=== PATIENT | female | born 1965 | race Caucasian/White ===

== ENCOUNTER → 2017-04-14 | Outpatient (CLI) | payer BC ==
[~2017-04-14] MED LIST: CLON0.5T3 PO; ESCI1TAB6 PO; TEMA15CA4 PO
--- NOTE | 2017-04-14 10:04 | DIAGNOSTIC IMAGING REPORT ---
ABDOMEN COMPLETE (US) HISTORY: Pain. Nodule. GENERALIZED ABDOMINAL PAIN, SWELLING, MASS/LUMP. COMPARISON: 08/21/2011 FINDINGS: Pancreas: The pancreas demonstrates a normal echotexture. Liver: Unremarkable. Gallbladder: Combination of gallstones as well as a small amount of sludge. No significant wall edema. CBD: 4 mm Kidneys: No hydronephrosis. Spleen: Normal in size. Aorta: Normal in caliber. IVC: Patent. IMPRESSION: 1. Combination of gallstones as well as a small amount of sludge within the gallbladder. 2. Normal caliber bile ducts. 3. Otherwise negative study. The above report was generated using voice recognition software. It may contain grammatical, syntax or spelling errors. Electronically signed by: Jason Caro M.D. 04/14/2017 10:03 AM Dictated Date/Time: 04/14/2017 10:01 AM
--- NOTE | 2017-04-14 10:10 | DIAGNOSTIC IMAGING REPORT ---
Neck ULTRASOUND HISTORY: GENERALIZED ABDOMINAL PAIN, SWELLING, neck MASS/LUMP COMPARISON: None. FINDINGS: Real-time sonographic imaging of the left neck was performed at the patient's area of interest. There is no mass or fluid collection. No enlarged lymph node. Normal submandibular gland is identified. IMPRESSION: No sonographic abnormality within the left neck. Electronically signed by: Erasmo Palafox M.D. 04/14/2017 10:08 AM Dictated Date/Time: 04/14/2017 10:02 AM
== END | disposition home or self-care (01) ==
LOC: C.ULTRBC 09:15
PROVIDERS: ATTEND Family Medicine
DX: R22.1 Localized swelling, mass and lump, neck (principal); R10.84 Generalized abdominal pain

== ENCOUNTER → 2017-06-14 | Outpatient (CLI) | payer BC ==
--- NOTE | 2017-06-14 16:11 | DIAGNOSTIC IMAGING REPORT ---
CHEST 2 VIEWS ROUTINE CLINICAL HISTORY: 52 years-old Female presenting with SHORTNESS OF BREATH. TECHNIQUE: PA and lateral views of the chest were obtained. COMPARISON: 11/07/2010. FINDINGS: Cardiomediastinal silhouette normal. Lungs and pleural spaces clear. Osseous structures normal. Upper abdomen normal. IMPRESSION: 1. No acute cardiopulmonary disease. Electronically signed by: Adeel Mccarthy M.D. 06/14/2017 4:10 PM Dictated Date/Time: 06/14/2017 4:09 PM
== END | disposition home or self-care (01) ==
LOC: C.RADBC 15:34
PROVIDERS: ATTEND Family Medicine
DX: R06.02 Shortness of breath (principal)

== ENCOUNTER → 2017-10-15 | Outpatient (CLI) | payer OTHER ==
[2017-10-15 16:10] LABS: INFLUENZA B ANTIGEN Neg for Influ B (NEG)
== END | disposition home or self-care (01) ==
LOC: C.LABSPEC 15:04
PROVIDERS: ATTEND Family Medicine
DX: J02.9 Acute pharyngitis, unspecified (principal)